=== PATIENT | male | born 1995 | race Caucasian/White ===

== ENCOUNTER → 2019-04-27 | Outpatient (CLI) | payer OTHER | LOC: COL.RAD 09:00 | DX: M25.552 Pain in left hip (principal); Z98.890 Other specified postprocedural states | CPT/HCPCS: A9585; Q9967 ==

== ENCOUNTER → 2019-04-28 | Outpatient (CLI) | payer OTHER | LOC: COL.RAD 08:56 | DX: M25.551 Pain in right hip (principal); Z98.890 Other specified postprocedural states | CPT/HCPCS: A9585; Q9967 ==

== ENCOUNTER → 2019-05-07 | Outpatient (CLI) | payer OTHER | LOC: COL.RAD 08:06 | DX: M25.551 Pain in right hip (principal); M25.552 Pain in left hip | CPT/HCPCS: J3301; Q9967 ==